=== PATIENT | female | born 1945 | race Caucasian/White ===

== ENCOUNTER 2024-06-29 11:54 | Outpatient (CLI) | payer MEDICARE, SELFPAY ==
[2024-06-29 12:09] LABS: Bilirubin Urine Negative (Negative); Blood Urine Negative (Negative); Glucose Urine UA Negative (Normal); Ketones Urine Negative (Negative); Leukocyte Esterase Urine Negative (Negative); Nitrate Urine Negative (Negative); Protein Urine 1+ (Negative); Specific Gravity, Urine 1.026 (1.005-1.030); Urine Appearance Turbid (CLEAR); Urine Color Dark Yellow (Yellow)
[2024-06-29 12:15] LABS: Add Urine Microscopic? YES; Hyaline Casts Urine 4.11 /lpf; RBC Urine 0-2 /hpf (0-2); Squamous Epithelial Cell Urine 0-5 /hpf (0-5); WBC Urine 0-5 /hpf (0-5)
[2024-06-29 12:29] LABS: Amorphous Sediment Urine 1+ /hpf
[2024-06-29 12:31] LABS: Bacteria Urine 4+ /hpf
== END 2024-06-29 11:55 | disposition home or self-care (01) ==
LOC: LAB 11:55
PROVIDERS: PCP Family Medicine; Visit Provider Family Medicine
DX: N39.0 Urinary tract infection, site not specified (principal)
CPT/HCPCS: 81001; 87086

== ENCOUNTER → 2024-09-19 09:46 | Outpatient (BNVA) | payer MEDICARE, SELFPAY | PROVIDERS: PCP Family Medicine; Visit Provider Podiatrist Foot & Ankle Surgery | DX: L60.3 Nail dystrophy (principal); Z78.9 Other specified health status; G30.9 Alzheimer's disease, unspecified; F02.80 Dementia in other diseases classified elsewhere, unspecified severity, without behavioral disturbance, psychotic disturbance, mood disturbance, and anxiety | CPT/HCPCS: 11750; 99203 ==

== ENCOUNTER 2024-09-25 06:33 | Emergency (ER) | payer MEDICARE, SELFPAY ==
[2024-09-25 06:34] VITALS: BP 107/66; PULSE 65; RESP 16; TEMP 36.9; O2SAT 94; BMI 18.3
[2024-09-25 06:39] VITALS: BP 107/66; PULSE 65; O2SAT 94
--- NOTE | 2024-09-25 06:40 | CTR_ITS ---
PROCEDURE INFORMATION: Exam: CT Head Without Contrast Exam date and time: 09/25/2024 6:53 AM Age: 79 years old Clinical indication: Injury or trauma; Fall; Blunt trauma (contusions or hematomas); Consciousness not specified; Additional info: Fall, head injury TECHNIQUE: Imaging protocol: Computed tomography of the head without contrast. Radiation optimization: All CT scans at this facility use at least one of these dose optimization techniques: automated exposure control; mA and/or kV adjustment per patient size (includes targeted exams where dose is matched to clinical indication); or iterative reconstruction. COMPARISON: No relevant prior studies available. RADIATION DOSE METRICS: Total DLP (mGy-cm): 1124.24 FINDINGS: Brain: Diffuse parenchymal atrophy. Intracranial calcified and noncalcified atherosclerotic disease. Periventricular white matter hypo attenuation consistent with, however nonspecific for, chronic microvascular disease. Cerebral ventricles: Ex vacuo dilation of the ventricles and CSF spaces. Pituitary gland and sella: Partially empty sella, of likely little clinical significance given isolated finding. Paranasal sinuses: Visualized sinuses are unremarkable. No fluid levels. Mastoid air cells: Visualized mastoid air cells are well aerated. Bones: No acute or aggressive osseous abnormality. Soft tissues: Possible small right frontal midline scalp contusion. CT/CT head wo con* [id number] IMPRESSION: 1. No acute intracranial findings. 2. Possible small right frontal midline scalp contusion.
--- NOTE | 2024-09-25 06:41 | ED_ITS ---
HPI - Fall General: Chief Complaint: Fall Stated Complaint: fall , head lac Time Seen by Provider: 09/25/24 06:34 History of Present Illness: 79-year-old female with a history of dem entia who presents emergency room by ambulance from a skilled nursing after a suspected fall. She has a laceration on her right scalp and an abrasion/laceration to her forehead centrally. She does not give any history. Apparently skilled nursing staff found her in her bed this morning covered in blood. The above mentioned lacerations were present. Unknown when she fell. She has no focal motor deficits. She does not answer any questions however. She will follow some commands. Moves all extremities. No facial droop. Related Data Home Medications ?Medication ?Instructions ?Recorded ?Confirmed memantine 21 mg capsule 21 mg PO DAILY 02/02/2401/12 sprinkle,extended release 24hr sertraline 100 mg tablet 100 mg PO DAILY 02/02/2401/12 vit C 250 mg-E 90 mg-zinc 40 1 tab PO BID 02/02/2401/12 mg-copper 1 pg-[id number] chew tablet (PreserVision AREDS-2) lorazepam 0.5 mg tablet 0.5 mg PO DAILY PRN Anxiety 04/18/24 09/25/24 Previous Rx's ?Medication ?Instructions ?Recorded cephalexin 500 mg capsule 500 mg PO BID 14 days #28 ca ps 09/19/24 silver sulfadiazine 1 % topical 1 applic topical BID 2 weeks #50 09/19/24 cream grams Allergies Allergy/AdvReac Type Severity Reaction Status Date / Time No Known Allergies Allergy Verified 09/25/24 06:39 Review of Systems General: Reports: ROS unobtainable due to medical condition [facility] ED PFS: Social History (Updated 09/19/24 @ 10:16 by Carmen Carrion MA) Smoking and tobacco/nicotine status: never used tobacco/nicotine Second hand smoke exposure: No Alcohol intake: never Substance/Drug Use: never Physical Exam Narrative: EXAM NARRATIVE: General: Alert, no acute distress. Skin: Warm, dry. Head: Normocephalic, superficial laceration to the central forehead with some maceration. There is a large laceration to the right scalp area.. Neck: Supple, trachea midline. Eye: Extraocular movements are intact. Ears, nose, mouth and throat: mucosa moist. Cardiovascular: Regular, Normal peripheral perfusion. Respiratory: Lungs are clear to auscultation, respirations are non-labored, breath sounds are equal, Symmetrical chest wall expansion. Gastrointestinal: Soft, Nontender, Non distended Musculoskeletal: Normal ROM, no deformity. Neurological: Alert and oriented, No focal neurological deficit observed. Psychiatric: Cooperative, appropriate mood & affect. Course Vital Signs: Vital signs: Vital Signs Temperature 98.4 F 09/25/24 06:34 Pulse Rate 65 09/25/24 06:39 Respiratory Rate 16 09/25/24 06:34 Blood Pressure 107/86 09/25/24 07:22 Pulse Oximetry 96 09/25/24 07:22 Oxygen Delivery Me thod Room Air 09/25/24 07:22 MDM - Fall Medical Decision Making CT head: No acute intracranial process. no intracranial hemorrhage, no evidence of infarct. no evidence of acute fracture.This was reviewed and interpreted by myself the ER physician. Laceration repair procedure: Time: 7:30 AM Confirmed patient, procedure, side, and site. Time out performed prior to procedure. Verbal consent was obtained by patient and/or responsible constitution party. Indication: Laceration Laceration #1 Location: Right scalp Length: 5 cm Description: Slightly curved deep laceration. Anesthesia: 8 mL 1% lidocaine with epinephrine Area prepared by sterile field with Betadine. # 8, mik, simple, interrupted technique. Laceration #2 Location: Central forehead Length: 3 cm Description: Slightly macerated laceration. Linear. Anesthesia: 2 mL 1% lidocaine with epinephrine Area prepared by sterile field with Betadine. # 3, 4-0 sutures were utilized, simple, interrupted technique. Post procedure examination: Circulation, motor, sensory intact. Patient tolerated the procedure well. No complications, bleeding. Total time: 15 min. Pt advised to keep the area clean and dry, wash twice per day with antibacterial soap and water. Return to the ED or PCP in 10 days for suture removal. Assessment and plan: Fall Scalp laceration Forehead laceration ? Patient is already on Keflex which is started couple days ago. ? Life-saving tetanus was administered - Discharged home - Discussed plan with patient. Answered any questions. - Evaluation and treatment of this problem were appropriate in the emergency setting. Lab Data Radiology Impressions Head CT 09/25/24 06:40 IMPRESSION: 1. No acute intracranial findings. 2. Possible small right frontal midline scalp contusion. All radiology interpretation(s) finalized by discharge Discharge Plan Discharge Patient Disposition: Home Clinical Impression: Laceration of scalp, Laceration of forehead Condition: Stable Prescriptions: No Action sertraline 100 mg tablet 100 mg PO DAILY memantine 21 mg capsule,sprinkle,ER 24hr 21 mg PO DAILY PreserVision AREDS-2 250-90-40-1 mg tablet,chewable 1 tab PO BID lorazepam 0.5 mg tablet 0.5 mg PO DAILY PRN (Reason: Anxiety) Rx Instructions: One tablet by mouth daily as needed for anxiety or aggression. silver sulfadiazine 1 % cream 1 applic topical BID 14 Days Qty: 50 0RF Rx Instructions: apply a 1.5 mm thickness twice daily cover with band-aid. cephalexin 500 mg capsule 500 mg PO BID 14 Days Qty: 28 0RF Rx Instructions: Take 1 twice daily for 14 days. Discharge Orders: Discharge ED (Routine); Ordered 09/25/24 Ordered By: Cassandra Hamm Referrals: Eder Hall DO [Primary Care Provider] - Discharge Diet: Usual diet Discharge Activity: Increase activity as tolerated Patient Instructions: Opioid Safety, Pain Management Activity Restrictions/Additional Instructions: Keep the area clean and dry, wash twice per day with antibacterial soap and water. Return to your primary provider or the emergency room in 10 days for suture removal. Avoid any prolonged submersion in water. Avoid all weems water, pond water, streams or other untreated water. Thank you for choosing [facility] for your healthcare needs today. Please realize this is an emergency room and that we are providing you with a medical screening exam and this may not be complete and all inclusive of all the testing and or work up that you may need to determine your ailment or severity of your illness. You have been screened and evaluated and felt safe for discharge. Health conditions do change or evolve sometimes and as such it is important that you follow up with your Primary Doctor to be re checked, 3-5 days is a general good time frame for follow up. You are always welcome to return to the ED for re assessment if your symptoms are worsening or you have new concerns Print Language: Mauritanian Coding Level of Care Code ED Case Planner for Joan Hooper
[2024-09-25] MEDS: lidocaine-epi 1% 20 mL INJ INJECTION (07:11)
[2024-09-25] MEDS: tetanus-dipt-pertussis 0.5 mL SDV IM (07:11)
[2024-09-25 07:22] VITALS: BP 107/86; O2SAT 96
--- NOTE | 2024-09-25 07:23 | PC.NURSE ---
PATIENT FACED CLEANED AFTER STERI-STRIPS.
--- NOTE | 2024-09-25 07:38 | PC.NURSE ---
SUTURES AND МАРИНА PLACED BY DR MONSON, PATIENT TOLERATED PROCEDURE WELL.
--- NOTE | 2024-09-25 08:08 | PC.NURSE ---
PER GIO AT [facility], OK TO CALL [facility] AND THEY BILL THEM.
--- NOTE | 2024-09-25 08:45 | PC.NURSE ---
PATIENT CONFUSED, ATTEMPTING TO GET OUT OF BED. PATIENT PLACED BACK IN BED, GIVEN WARM BLANKET AND TV TURNED ON. PATIENT MADE COMFORTABLE IN BED.
--- NOTE | 2024-09-25 09:35 | PC.NURSE ---
REPORT ATTEMPTED, MALE STAFF MEMBER STATES THEY ARE ALL IN MEETINGS. NURSE TOLD STAFF MEMBER PATIENT WOULD BE COMING BACK WITH МАРИНА AND SUTURES, AND DISCHARGE PAPERWORK. CALLED REPORT TO GIO DELAROSA.
== END 2024-09-25 10:05 | disposition home or self-care (01) ==
PROVIDERS: Emergency Provider Emergency Medicine; PCP Family Medicine
DX: S01.01XA Laceration without foreign body of scalp, initial encounter (principal); S01.81XA Laceration without foreign body of other part of head, initial encounter; X58.XXXA Exposure to other specified factors, initial encounter
CPT/HCPCS: 12013; 12032; 70450; 90471; 90715; 99284